=== PATIENT | female | born 1975 | race American Indian/Alaskan Native ===

== ENCOUNTER 2017-10-20 17:17 | Emergency (ER) | payer BC ==
[2017-10-20 17:34] VITALS: BP 113/73
--- NOTE | 2017-10-20 18:34 | Emergency Department Report ---
Minor Respiratory - HPI Chief Complaint: Upper Respiratory Infection Stated Complaint: PALPITATIONS AND COUGH Time Seen by Provider: 10/20/17 18:21 Duration: 3 Days Pain Location: Chest Severity: mild Minor Respiratory: Yes Able to Tolerate Fluids, Yes Cough (she has had a nonproductive cough for the past several days. The patient agrees she says she feels of his flat moving within her chest sometimes. Patient also states that she has some minor palpitations along with the cough.), No Rhinorrhea, No Sore Throat, No Ear Pain, No Sick Contacts, No Hemoptysis, No Chest Pain, No Shortness of Breath, No Fever ED Review of Systems ROS: Stated complaint: PALPITATIONS AND COUGH Other details as noted in HPI Comment: All other systems reviewed and negative ED Past Medical Hx - Past Medical History Previous Medical History?: Yes Additional medical history: Bronchitis - Surgical History Past Surgical History?: Yes Additional Surgical History: x 2, Myomectomy, tubaligation - Social History Smoking Status: Never Smoker Substance Use Type: Alcohol, Other - Medications Home Medications: Home Medications Medication Instructions Recorded Confirmed Last Taken Type ALBUTEROL Inhaler [ProAir HFA 2 puff IH QID PRN #1 inhalation 10/20/17 Unknown Rx Inhaler] Azithromycin [Zithromax Z-MICHELINE] 250 mg PO DAILY #6 tablet 10/20/17 Unknown Rx Benzonatate [Tessalon Perles] 100 mg PO Q8HR #10 capsule 10/20/17 Unknown Rx predniSONE [Deltasone] 20 mg PO QDAY #5 tab 10/20/17 Unknown Rx Minor Respiratory Exam - Exam General: Vital signs noted. No distress. Alert and acting appropriately. HEENT: Yes Moist Mucous Membranes, No Pharyngeal Erythema, No Pharyngeal Exudates, No Rhinorrhea, No Conjuctival Injection, No Frontal Tenderness, No Maxillary Tenderness Ear: Neither TM Bulge, Neither TM Erythema, Neither EAC Pain, Neither EAC Discharge Neck: Yes Supple, No Adenopathy Lungs: Yes Good Air Exchange, No Wheezes, No Ronchi, No Stridor, No Cough, No Labored Respirations, No Retractions, No Use of Accessory Muscles, No Other Abnormal Lung Sounds Heart: Yes Regular, No Murmur Abdomen: Yes Normal Bowel Sounds, No Tenderness, No Peritoneal Signs Skin: No Rash, No Edema Neurologic: Alert and oriented, no deficits. Musculoskeletal: Unremarkable. ED Course Vital Signs 10/20/17 17:29 Temperature 98.3 F Pulse Rate 77 Respiratory 18 Rate Blood Pressure 113/73 O2 Sat by Pulse 98 Oximetry ED Medical Decision Making - Medical Decision Making Patient to be treated for acute bronchitis and be discharged home Critical care attestation.: If time is entered above; I have spent that time in minutes in the direct care of this critically ill patient, excluding procedure time. ED Disposition Clinical Impression: Acute bronchitis Qualifiers: Bronchitis organism: unspecified organism Qualified Code(s): J20.9 - Acute bronchitis, unspecified Disposition: DC-01 TO HOME OR SELFCARE Is pt being admited?: No Does the pt Need Aspirin: No Condition: Stable Instructions: Acute Bronchitis (ED) Referrals: PRIMARY CARE, [Primary Care Provider] - 3-5 Days
== END 2017-10-20 18:46 | disposition home or self-care (01) ==
LOC: ED 17:17
DX: J20.9 Acute bronchitis, unspecified (principal); Z98.51 Tubal ligation status
CPT/HCPCS: 99282

== ENCOUNTER 2018-06-24 16:27 | Emergency (ER) | payer BC ==
--- NOTE | 2018-06-24 16:59 | Emergency Department Report ---
Blank Doc - Documentation Documentation: This is a 42-year-old female that presents with left shoulder pain. Patient s tated had a surgery to left breast. PCP is worried about DVT. This initial assessment/diagnostic orders/clinical plan/treatment(s) is/are subject to change based on patient's health status, clinical progression and re- assessment by fellow clinical providers in the ED. Further treatment and workup at subsequent clinical providers discretion. Patient/guardians urged not to elope from the ED as their condition may be serious if not clinically assessed and managed. Initial orders include: 1- Patient sent to [facility] for further evaluation and treatment 2- Will order doppler
--- NOTE | 2018-06-24 17:47 | Emergency Department Report ---
ED General Adult HPI - General Chief complaint: Shoulder Injury Stated complaint: L SIDE PAIN Time Seen by Provider: 06/24/18 16:57 Source: patient Mode of arrival: Ambulatory Limitations: No Limitations - History of Present Illness Initial comments: Pt is a 42 yo female who presents to the ED with c/o left UE discomfort and feeling like she fell asleep on her left arm that began today. The patient states she does not have complete numbness or tingling. She states that she had a left mastectomy with lymph node dissection on 05/26/18 and has an caser shoe parts in place which they have been filling weekly. The patient has that they removed her JONG drain yesterday. She denies any edema of the LUE, erythema of the LUE, CP, SOB, cough, or fever. The patient is being seen by Dr. Kayla Clemons at [facility] and Dr. Bethel Rosenbaum for plastic surgery. The patient states she called the clinic today who recommended that she been seen in the ED to have an US to r/o a DVT. Complaint: LUE discomfort -: This morning Location: upper extremity Radiation: non-radiation Severity scale (0 -10): 5 Quality: aching Consistency: constant Improves with: other (massaging) Worsens with: movement Associated Symptoms: denies other symptoms Treatments Prior to Arrival: none - Related Data Previous Rx's Medication Instructions Recorded Last Taken Type ALBUTEROL Inhaler (OR & NICU) 2 puff IH QID PRN #1 inhalation 10/20/17 Unknown Rx [ProAir HFA Inhaler] Azithromycin [Zithromax Z-MICHELINE] 250 mg PO DAILY #6 tablet 10/20/17 Unknown Rx Benzonatate [Tessalon Perles] 100 mg PO Q8HR #10 capsule 10/20/17 Unknown Rx predniSONE [Deltasone] 20 mg PO QDAY #5 tab 10/20/17 Unknown Rx Allergies Allergy/AdvReac Type Severity Reaction Status Date / Time No Known Allergies Allergy Unverified 10/20/17 17:28 ED Review of Systems ROS: Stated complaint: L SIDE PAIN Other details as noted in HPI Comment: All other systems reviewed and negative ED Past Medical Hx - Past Medical History Previous Medical History?: Yes Additional medical history: Bronchitis, breast CA - Surgical History Past Surgical History?: Yes Additional Surgical History: x 2, Myomectomy, tubaligation, mastectomy on left for breast CA 05/2018 - Social History Smoking Status: Never Smoker Substance Use Type: None - Medications Home Medications: Home Medications Medication Instructions Recorded Confirmed Last Taken Type ALBUTEROL Inhaler (OR & NICU) 2 puff IH QID PRN #1 inhalation 10/20/17 Unknown Rx [ProAir HFA Inhaler] Azithromycin [Zithromax Z-MICHELINE] 250 mg PO DAILY #6 tablet 10/20/17 Unknown Rx Benzonatate [Tessalon Perles] 100 mg PO Q8HR #10 capsule 10/20/17 Unknown Rx predniSONE [Deltasone] 20 mg PO QDAY #5 tab 10/20/17 Unknown Rx ED Physical Exam - General Limitations: No Limitations General appearance: alert, in no apparent distress - Head Head exam: Present: atraumatic, normocephalic - Eye Eye exam: Present: normal appearance - ENT ENT exam: Present: mucous membranes moist - Neck Neck exam: Present: normal inspection - Respiratory Respiratory exam: Present: normal lung sounds bilaterally. Absent: respiratory distress, wheezes, rales, rhonchi, stridor, accessory muscle use, decreased breath sounds, prolonged expiratory - Cardiovascular Cardiovascular Exam: Present: regular rate, normal rhythm, normal heart sounds. Absent: systolic murmur, rubs, gallop - GI/Abdominal GI/Abdominal exam: Present: soft. Absent: distended, tenderness - Extremities Exam Extremities exam: Present: other (no edema or erythema of the LUE, pulses intact, warm to touch, no pain with palpation, sensation intact ) - Neurological Exam Neurological exam: Present: alert, oriented X3 - Psychiatric Psychiatric exam: Present: normal affect, normal mood - Skin Skin exam: Present: warm, dry, intact ED Course Vital Signs 06/24/18 16:59 Temperature 98.8 F Pulse Rate 87 Respiratory 18 Rate Blood Pressure 131/65 O2 Sat by Pulse 97 Oximetry ED Medical Decision Making - Lab Data Result diagrams: 06/24/18 20:00 - Radiology Data Radiology results: report reviewed LUE US: negative for DVT - Medical Decision Making Pt is a 42 yo female who presents to to ED with left UE discomfort and a heaviness. Pt had a left mastectomy with lymph node removal on 05/26. She denies any fever. There is no signs of infection. She denies any fever, SOB, or CP. US of the LUE is negative for a DVT. Will have pt follow up with [facility] and her plastic surgeon in the next 2 days. Advised to return if any new or worsening sx or if sx do not improve. Critical care attestation.: If time is entered above; I have spent that time in minutes in the direct care of this critically ill patient, excluding procedure time. ED Disposition Clinical Impression: Left arm pain Disposition: DC- TO HOME OR SELFCARE Is pt being admited?: No Does the pt Need Aspirin: No Condition: Stable Instructions: Musculoskeletal Pain (ED) Additional Instructions: Follow up with [facility] and plastic surgeon in the next two days. Return to the emergency room if new or worsening symptoms or if symptoms do not improve. Referrals: DOUG MALIK MD [Primary Care Provider] - 3-5 Days Time of Disposition: 20:38 Print Language: SAMMARINESE
--- NOTE | 2018-06-24 20:10 | Vascular Lab Report ---
PROCEDURE: VL VENOUS DUPLEX UE LT HISTORY: left arm pain FINDINGS: Real-time ultrasound of the left arm was performed using grayscale and color Doppler images . These images demonstrate no evidence of deep venous thrombosis in the left internal jugular, subclavi an, axillary or brachial veins. There is no evidence of superficial venous thrombosis in the cephalic or basilic veins. IMPRESSION: No DVT in left arm This document is electronically signed by Jose Villa MD., June 24 2018 08:08:02 PM ET
[2018-06-24 20:25] LABS: Basophils % (Auto) 0.7 % (0.0-1.8); Eosinophils # (Auto) 0.3 K/mm3 (0.0-0.4); Eosinophils % (Auto) 5.2 % (0.0-4.3); Hematocrit 36.5 % (30.3-42.9); Hemoglobin 12.2 gm/dl (10.1-14.3); Lymphocytes # (Auto) 1.7 K/mm3 (1.2-5.4); Lymphocytes % (Auto) 26.4 % (13.4-35.0); Mean Corpuscular HGB Conc 34 % (30-34); Mean Corpuscular Volume 78 fl (79-97); Monocytes # (Auto) 0.5 K/mm3 (0.0-0.8); Platelet Count 200 K/mm3 (140-440); Red Blood Count 4.65 M/mm3 (3.65-5.03); Red Cell Distribution Width 17.1 % (13.2-15.2)
[2018-06-24 20:46] VITALS: BP 99/55
== END 2018-06-24 20:46 | disposition home or self-care (01) ==
LOC: ED 16:27
DX: M79.602 Pain in left arm (principal); Z85.3 Personal history of malignant neoplasm of breast; Z98.51 Tubal ligation status
CPT/HCPCS: 36415; 85025